=== PATIENT | male | born 1985 | race Caucasian/White ===

== ENCOUNTER 2017-12-14 15:01 | Emergency (ER) | payer MEDICAID ==
[2017-12-14] MEDS ORDERED: CHLORDIAZEPOXIDE 25MG PREPK#6 BTL TAKEHOME ONE (15:57)
--- NOTE | 2017-12-14 15:57 | EDPHY ---
H & P Stated Complaint: 13 year hx of etoh/wants to stop last drink last night Time Seen by Provider: 12/14/17 15:45 HPI/ROS: CHIEF COMPLAINT: Alcohol detox HISTORY OF PRESENT ILLNESS: 32-year-old male with bipolar disorder and alcoholism presents for alcohol detox. He called [facility] just prior to arrival because he is planning to go through outpatient detox. The [facility] asked him to come here for Librium. He stopped drinking yesterday. He feels somewhat anxious and tremulous. History of alcohol withdrawal seizures. He also recently moved here from [place] and ran out of his [employer] and [employer]. REVIEW OF SYSTEMS: complete 10 point ROS reviewed and is negative except for the noted elements in the HPI - Personal History Current Tetanus Diphtheria and Acellular Pertussis (TDAP): Unsure - Medical/Surgical History Hx Asthma: No Hx Chronic Respiratory Disease: No Hx Diabetes: No Hx Cardiac Disease: No Hx Renal Disease: No Hx Cirrhosis: No Hx Alcoholism: Yes Hx HIV/AIDS: No Hx Splenectomy or Spleen Trauma: No Other PMH: Bipolar disorder, alcoholism, peripheral neuropathy - Social History Smoking Status: Current every day smoker Alcohol Use: Heavy Drug Use: None Additional Social History: Recently moved to [place] In the back to work program - Physical Exam Exam: General Appearance: Alert, pleasant and talkative, no tremor Eyes: Pupils equal and round, no conjunctival pallor or injection ENT, Mouth: Mucous membranes moist Neck: Normal inspection Respiratory: Lungs are clear to auscultation Cardiovascular: Regular rate and rhythm Gastrointestinal: Abdomen is soft and nontender Neurological: A&O, nonfocal, normal gait Skin: Warm and dry, no rash Extremities: Nontender, no pedal edema Psychiatric: Slightly anxious Constitutional: Initial Vital Signs Temperature (C) 37.1 C 12/14/17 15:06 Heart Rate 96 12/14/17 15:06 Respiratory Rate 18 12/14/17 15:06 Blood Pressure 162/106 H 12/14/17 15:06 O2 Sat (%) 92 12/14/17 15:06 O2 Delivery Mode Room Air Allergies/Adverse Reactions: No Known Allergies Allergy (Unverified 12/14/17 15:05) Home Medications: Medication Instructions Recorded FLUoxetine [PROzac] 40 mg PO DAILY #20 cap 12/14/17 Levothyroxine 12/14/17 Prozac 10 MG (*) 12/14/17 QUEtiapine FUMARATE [Seroquel 100 100 mg PO TID #30 tab 12/14/17 mg (*)] Seroquel 12/14/17 Medical Decision Making ED Course/Re-evaluation: I refilled this patient's prescriptions for Seroquel and Prozac. Librium prepack given. - Data Points Medications Given: Discontinued Medications Chlordiazepoxide (Librium 25 Mg Prepack#6) 1 btl TAKEHOME EDNOW ONE Stop: 12/14/17 15:58 Last Admin: 12/14/17 16:09 Dose: 1 btl Departure - Departure Disposition: Home, Routine, Self-Care Clinical Impression: Alcohol withdrawal Qualifiers: Complication of substance-induced condition: uncomplicated Qualified Code(s): F10.230 - Alcohol dependence with withdrawal, uncomplicated Condition: Good Instructions: Chlordiazepoxide (By mouth), Fluoxetine (By mouth), Quetiapine ( By mouth), Alcohol Withdrawal (ED) Additional Instructions: [facility] directly to [facility] Librium 1-2 tablets every 6 hr as needed for alcohol withdrawal. Referrals: [facility] Detox 24 Hours [Outside] - As per Instructions [facility],. [Clinic] - As per Instructions Prescriptions: FLUoxetine [PROzac] 40 mg PO DAILY #20 cap QUEtiapine FUMARATE [Seroquel 100 mg (*)] 100 mg PO TID #30 tab
[2017-12-14 16:15] VITALS: BP 133/87
== END 2017-12-14 16:15 | disposition home or self-care (01) ==
DX: F10.230 Alcohol dependence with withdrawal, uncomplicated (principal); F31.9 Bipolar disorder, unspecified; Z72.0 Tobacco use

== ENCOUNTER 2017-12-27 13:44 | Emergency (ER) | payer MEDICAID ==
[2017-12-27 13:51] VITALS: BP 163/108
[2017-12-27] MEDS ORDERED: CHLORDIAZEPOXIDE 25MG PREPK#6 BTL TAKEHOME ONE (14:02)
--- NOTE | 2017-12-27 14:03 | EDPHY ---
H & P Stated Complaint: here from [facility] for librium Time Seen by Provider: 12/27/17 13:57 HPI/ROS: CHIEF COMPLAINT: Referred to ED for Librium starter pack HISTORY OF PRESENT ILLNESS: The patient presents the ED at [facility] for Librium starter pack. The patient has a history of alcohol dependence. He is endorsing symptoms of mild alcohol withdrawal with nausea. He denies any fever, cough or congestion. She denies any acute abdominal pain. He denies additional acute complaints. He was the [facility] approximately 2 weeks ago for withdrawal symptoms. REVIEW OF SYSTEMS: A comprehensive 10 point review of systems is otherwise negative aside from elements mentioned in the history of present illness. Source: Patient Exam Limitations: No limitations - Medical/Surgical History Hx Asthma: No Hx Chronic Respiratory Disease: No Hx Diabetes: No Hx Cardiac Disease: No Hx Renal Disease: No Hx Cirrhosis: No Hx Alcoholism: Yes Hx HIV/AIDS: No Hx Splenectomy or Spleen Trauma: No Other PMH: Bipolar disorder, alcoholism, peripheral neuropathy, hypothyroid, gynoclamastia surg - Social History Smoking Status: Current every day smoker - Physical Exam Exam: General Appearance: Alert, no distress Eyes: Pupils equal and round no pallor or injection ENT, Mouth: Mucous membranes moist Respiratory: There are no retractions, lungs are clear to auscultation Cardiovascular: Regular rate and rhythm Gastrointestinal: Abdomen is soft and nontender, no masses, bowel sounds normal Neurological: A&O, normal motor function, normal sensory exam, normal cranial nerves Skin: Warm and dry, no rashes Musculoskeletal: Neck is supple nontender Extremities: symmetrical, full range of motion Constitutional: Initial Vital Signs Temperature (C) 36.7 C 12/27/17 13:48 Heart Rate 77 12/27/17 13:48 Respiratory Rate 16 12/27/17 13:48 Blood Pressure 163/108 H 12/27/17 13:48 O2 Sat (%) 95 12/27/17 13:48 O2 Delivery Mode Room Air Allergies/Adverse Reactions: No Known Allergies Allergy (Verified 12/27/17 13:50) Home Medications: Medication Instructions Recorded FLUoxetine [PROzac] 40 mg PO DAILY #20 cap 12/14/17 Levothyroxine 12/14/17 QUEtiapine FUMARATE [Seroquel 100 100 mg PO TID #30 tab 09/29/18 mg (*)] Medical Decision Making ED Course/Re-evaluation: The patient presents the emergency department requesting Librium for mild alcohol withdrawal. She does not meet criteria for inpatient hospitalization. She will be [facility] to the [facility] with a Librium prepack. Departure - Departure Disposition: Home, Routine, Self-Care Condition: Good Instructions: Chlordiazepoxide (By mouth), Alcohol Withdrawal (ED) Additional Instructions: Please follow up with the [facility] for further assistance with your alcohol dependence. Referrals: [facility] Detox 24 Hours [Outside] - As per Instructions
== END 2017-12-27 14:16 | disposition home or self-care (01) ==
DX: F10.239 Alcohol dependence with withdrawal, unspecified (principal)